=== PATIENT | male | born 1950 | race Caucasian/White ===

== ENCOUNTER 2016-07-23 16:42 | Emergency (ER) | payer OTHER ==
--- NOTE | 2016-07-23 17:40 | DIAGNOSTIC IMAGING REPORT ---
PROCEDURE: CT THORAX ABD PELVIS W/CONT INDICATION: TRAUMA, FALL FROM 8 - 10 FT TECHNIQUE: 125 ml of Isovue 300 injected intravenously and axial images were obtained of the entire thorax, abdomen, and pelvis with sagittal and coronal reformations. COMPARISON: Compared to radiographs of the thoracic and lumbar spine (01/24/2016) and CT abdomen and pelvis (09/16/2010). FINDINGS: THORAX: There is mild compressive volume loss at the lung bases. Lungs otherwise clear. Heart and mediastinum are of normal size. Moderate generalized ectasia of the thoracic esophagus. Mild to moderate degenerative changes of the thoracic spine. ABDOMEN: Cholecystectomy (surgical clips). Moderate ingested material in the stomach. Liver, spleen, pancreas, and aorta are normal. 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 Moderate diverticulosis of the descending colon. Bowel pattern is otherwise normal, including appendix. Moderate degenerative changes of the lumbar spine. PELVIS: Moderate diverticulosis of the sigmoid colon. Moderate to marked enlargement prostate (5.0 cm). The rest of pelvic structures are normal. No evidence of free fluid. IMPRESSION: 1. Moderate ectasia of the thoracic esophagus. Consider achalasia. 2. Moderate degenerative changes thoracic spine. 3. Otherwise negative CT thorax. 4. Status post cholecystectomy. 5. Moderate diverticulosis of the descending and sigmoid colon. 6. Moderate to marked enlargement prostate (5.0 cm). 7. Moderate degenerate change of the lumbar spine. 8. Otherwise negative CT abdomen and pelvis. 9. No evidence of acute process. 10. Finding discussed with Dr. Ronan Segal. All CT scans at this facility use dose modulation, iterative reconstruction, and/or weight-based dosing when appropriate to reduce radiation dose to as low as reasonably achievable.
--- NOTE | 2016-07-23 17:41 | DIAGNOSTIC IMAGING REPORT ---
PROCEDURE: CT HEAD WITHOUT CONTRAST INDICATION: TRAUMA/INJURY TECHNIQUE: Noncontrast axial images with sagittal and coronal reformations. COMPARISON: None. FINDINGS: Brain and ventricles are normal. No evidence of an acute process or hemorrhage. Sinuses and mastoids are normal. IMPRESSION: 1. Negative head CT. 2. Findings discussed with Dr. Ronan Segal at [address] scans at this facility use dose modulation, iterative reconstruction, and/or weight-based dosing when appropriate to reduce radiation dose to as low as reasonably achievable.
--- NOTE | 2016-07-23 18:52 | ED ORDER SUMMARY ---
..... Patient: JAMEL GUNN OrderSheet [facility] VisitID: [id number] [place] [address] 66y, M Registration Date/Time: 07/23/2016 ORDER SHEET Weight: 80.4 kg (measured) Allergies: None GENERAL ORDERS: CT Thorax/Abd/Pelvis w Cont (No) (N/A) Urgent (16:46 07/23/2016 Chucky Alexander) (Ack 16:55 Tonio) (17:31 Norbert R.N.) CT Head wo Cont Urgent (16:48 07/23/2016 Chucky Alexander) (Ack 16:55 Tonio) (17:31 Norbert R.N.) CBC w Diff Urgent (16:48 07/23/2016 Chucky Alexander) (16:54 Magnoarkvita R.N.) CMP Urgent (16:48 07/23/2016 Chucky Alexander) (16:54 Magnoarkvita R.N.) UA-Culture if indicated Urgent (16:48 07/23/2016 Chucky Alexander) (Ack 16:57 Tonio) (17:55 Wanda R.N.) PT with INR Urgent (16:48 07/23/2016 Chucky Alexander) (16:54 DMaziarka R.N.) PTT Urgent (16:48 07/23/2016 Chucky Alexander) (16:54 Magnoarkvita R.N.) Type & Screen Urgent (16:48 07/23/2016 Chucky Alexander) (16:54 DMaestebanarka R.N.) CPK Urgent (16:48 07/23/2016 Chucky Alexander) (16:54 Wanda R.N.) EKG - ER Stat (16:59 07/23/2016 Chucky Alexander) (Ack 16:59 Tonio) (17:31 Norbert R.N.) MEDICATION ORDERS: IV FLUIDS: Fentanyl IV 50 mcg (once now. may repeat Q1H for pain > 5/10) (16:48 07/23/2016 Chucky Alexander) (16:56 Wanda MarshallNJoan) IV NS : initial bolus 1000 mL (1000 mL/hr), then none - for X1 (NOW) (renal protection) (17:51 07/23/2016 Chucky Alexander) (17:57 Wanda Dawson.Jaja) ORDER SHEET NOTES: [Electronically signed by Carlton Johnson R.N. (20:00 07/23/2016)] [Electronically signed by Ronan Segal Dr. (11:03 07/26/2016)] [Electronically locked/signed by Carlton Johnson R.N. (20:00 07/23/2016)]
--- NOTE | 2016-07-23 18:52 | ED NURSING NOTES ---
Clinical Report - [facility] [place] [address] 07/23/2016 16:43 Patient: JAMEL GUNN TRIAGE Triage time 16:45. Acuity: LEVEL 2. Chief Complaint: FALL 8-10 FEET OFF A LADDER while climbing, onto a wood surface and concrete surface. Alert. --16:51 Nellie Tapia R.N. 16:49 07/23/16. BP: 149/87. HR: 98. RR: 24. O2 saturation: 97%. Temp: 98 F. Pain level now 9/10. --16:51 Nellie Tapia R.N. Weight: 80.4 kg measured. Height/Length: 69 inches Per Patient. BMI: 26.2. --16:50 Nellie Tapia R.N. Medications MetFORMIN HCl Oral. --16:46 Nellie Tapia R.N. Allergies None. --16:46 Nellie Tapia R.N. History Arrived by private vehicle. Historian: patient. Accompanied by family. This occurred just prior to arrival. The patient had loss of consciousness. (unknown). PAST MEDICAL HX: Diabetes mellitus. Tetanus status: unknown. SOCIAL HX: No alcohol use or drug use. --16:51 Nellie Tapia R.N. ADDITIONAL SURGERIES: Cholecystectomy. --16:47 Nellie Tapia R.N. PHYSICAL ASSESSMENT GENERAL / NEURO / PSYCH: Oriented X 4. Appears anxious and in distress. RESPIRATORY: Mild respiratory distress. CVS: Right breast area : tenderness. GI / : Abdomen soft. --16:51 Nellie Tapia R.N. RESPIRATORY: Breath sounds within normal limits. --16:53 Nellie Tapia R.N. NURSING PROGRESS NOTES Point of care testing: performed by tech. Glucose: 142. Patient gowned. Patient identifiers checked. Call light placed in reach. --16:52 Nellie Tapia R.N. 16:46 07/23/2016 Site #1 started via IV in the right antecubital space with an 20g angiocath; one attempt. Blood drawn: rainbow set. Labeled in the presence of the patient and sent to the lab. --16:56 Nellie Tapia R.N. 16:52 07/23/2016 Site #2 started via IV in the right forearm with an 18g angiocath; one attempt. Saline lock flushed with 10 mL saline. --16:57 Nellie Tapia R.N. 16:56 07/23/2016 Fentanyl IVP 50 mcg given over 2 minute(s) via site #1. Allergies verified, confirmed 5 rights and sedative warning given to the patient. IV patency established. IV site checked: no pain, redness, or swelling. IV flushed thoroughly pre- and post-medication administration. IVP given by RN. --16:56 Nellie Tapia R.N. Patient transported by stretcher with tech. (1700). --17:03 Nellie Tapia R.N. 17:37 07/23/16. BP: 128/77. HR: 91. RR: 13. O2 saturation: 96% on room air. Pain level now 5/10. --17:37 Shannan Hernandes R.N. 17:39 07/23/2016 Fentanyl IVP 50 mcg given over 2 minute(s) via site #2. Allergies verified, confirmed 5 rights and sedative warning given to the patient and patient's tactical response group officer. IV patency established. IV site checked: no pain, redness, or swelling. IV flushed thoroughly pre- and post-medication administration. IVP given by RN. --17:39 Shannan Hernandes R.N. 17:55 07/23/2016 Started bag #1 1000 mL IV Fluids IV NS (Saline); bolus of 1000 mL wide open via site #2. Allergies verified and confirmed 5 rights. IV patency established. IV site checked: no pain, redness, or swelling. IV flushed thoroughly pre- and post-medication administration. --17:57 Nellie Tapia R.N. The patient is calm and resting quietly. ( Remains tender and hard to breath on the right). GENERAL / NEURO / PSYCH: Alert. Oriented X 4. --17:57 Nellie Tapia R.N. 17:58 07/23/16. BP: 137/81. HR: 85. RR: 20. O2 saturation: 96%. Pain level now 6/10. --18:02 Nellie Tapia R.N. ( Family at bedside pt awaiting results). --18:02 Nellie Tapia R.N. EKG time: (16:57). EKG was performed by a tech and shown to the ED physician. --18:28 Mark Cortez Reassessment after intervention and medication administered. He reports no complaints, he is calm and resting quietly and he has had no adverse reaction. Overall patient status is improved- he states feels better. --18:29 Shannan Hernandes R.N. 18:28 07/23/16. BP: 138/78. HR: 90. RR: 11. O2 saturation: 98% on room air. Pain level now 10. --18:29 Shannan Hernandes R.N. Cardiac rhythm: normal sinus rhythm. --18:29 Shannan Hernandes R.N. 18:30 07/23/2016 IV Fluids IV NS Discontinued: bag #1 infused. Total amount infused: 1000 mL. IV patency established. IV site checked: no pain, redness, or swelling. IV flushed thoroughly. --18:30 Shannan Hernandes R.N. 19:10. ( RT (Misty) counseled pt on Incentive Spirometry. Misty reviewed importance of doing IS every hour for 10 breaths. Jamel demonstrated proper use of IS. He also verbalizes importance of using IS to prevent negative outcomes while healing from his thoracic contusion.). GENERAL / NEURO / PSYCH: Alert. Oriented X 4. RESPIRATORY: No respiratory distress. --19:57 Carlton Johnson R.N. DISPOSITION / DISCHARGE 19:30 07/23/16. BP: 144/77 (regular adult cuff) taken on the left arm, via an automated monitor, while sitting. HR: 79 (normal rate). RR: 18 (regular, unlabored and normal). O2 saturation: 96% on room air. Temp: 97.6 F (oral). Pain level now: 01/01. --19:59 Carlton Johnson R.N. 19:30. Departure time: 1929. Condition at departure: stable. The goals identified in the patient's plan of care were met. No learning barriers present. Discharge instructions provided and reviewed with the patient. Reviewed medication(s) side effects, precautions, dosing and course information. Prescription(s) given to the patient (Jamel verbalizes importance of not driving and/or operating heavy machinery while under the influence of narcotics. He verbalizes safe, proper use of prescribed pain med for optimal pain management at home.). Activity restrictions (rest) reviewed. Patient verbalized understanding. Written instructions provided in Slovak. ( Jamel verbalizes understanding of all d/c instructions including need to f/u with PCP. He has no questions and voices no concerns at this time.). The patient was discharged by the physician. He was discharged home and accompanied by family. He left the Emergency Department ambulatory and via private vehicle. Family member driving. YANDEL COMA SCORE: Yandel Coma Scale: 15- eyes open spontaneously (4); best verbal response- oriented x 4 (5); best motor response- obeys commands (6). --19:59 Carlton Johnson R.N. 20:00 07/23/2016 Site #1 removed upon discharge. Catheter intact. Bandaid applied (Bleeding controlled.). --20:00 Carlton Johnson R.N. 20:00 07/23/2016 Site #2 removed upon discharge. Catheter intact. Bandaid applied (Bleeding controlled.). --20:00 Carlton Johnson R.N. Locked/Released at 07/23/2016 20:00 by Carlton Johnson R.N.
--- NOTE | 2016-07-23 18:52 | ED ORDER SUMMARY ---
..... Patient: JAMEL GUNN OrderSheet [facility] VisitID: [id number] [place] [address] 66y, M Registration Date/Time: 07/23/2016 ORDER SHEET Weight: 80.4 kg (measured) Allergies: None GENERAL ORDERS: CT Thorax/Abd/Pelvis w Cont (No) (N/A) Urgent (16:46 07/23/2016 Chucky Alexander) (Ack 16:55 Tonio) (17:31 Norbert R.N.) CT Head wo Cont Urgent (16:48 07/23/2016 Chucky Alexander) (Ack 16:55 Tonio) (17:31 Norbert R.N.) CBC w Diff Urgent (16:48 07/23/2016 Chucky Alexander) (16:54 Magnoarkvita R.N.) CMP Urgent (16:48 07/23/2016 Chucky Alexander) (16:54 Magnoarkvita R.N.) UA-Culture if indicated Urgent (16:48 07/23/2016 Chucky Alexander) (Ack 16:57 Toino) (17:55 Wanda R.N.) PT with INR Urgent (16:48 07/23/2016 Chucky Alexander) (16:54 DMaziarka R.N.) PTT Urgent (16:48 07/23/2016 Chucky Alexander) (16:54 Magnoarkvita R.N.) Type & Screen Urgent (16:48 07/23/2016 Chucky Alexander) (16:54 DMaestebanarka R.N.) CPK Urgent (16:48 07/23/2016 Chucky Alexander) (16:54 Wanda R.N.) EKG - ER Stat (16:59 07/23/2016 Chucky Alexander) (Ack 16:59 Tonio) (17:31 Norbert R.N.) MEDICATION ORDERS: IV FLUIDS: Fentanyl IV 50 mcg (once now. may repeat Q1H for pain > 5/10) (16:48 07/23/2016 Chucky Alexander) (16:56 Wanda MarshallNJoan) IV NS : initial bolus 1000 mL (1000 mL/hr), then none - for X1 (NOW) (renal protection) (17:51 07/23/2016 Chucky Alexander) (17:57 Wanda Dawson.Jaja) ORDER SHEET NOTES: [Electronically signed by Carlton Johnson R.N. (20:00 07/23/2016)] [Electronically signed by Ronan Segal Dr. (11:03 07/26/2016)] [Electronically locked/signed by Carlton Johnson R.N. (20:00 07/23/2016)]
--- NOTE | 2016-07-23 18:52 | ED CLINICAL REPORT ---
Clinical Report - Physicians/Mid Levels [facility] [address] [place] [address] 07/23/2016 16:43 Patient: JAMEL GUNN Arrived- By private vehicle. Historian- patient. HISTORY OF PRESENT ILLNESS Chief Complaint: FALL. Location of injuries- (right chest wall and flank). The injury occurred just prior to arrival. Fell 8-10 feet. Occurred at home. The patient complains of moderate pain. No blow to the head, neck pain, loss of consciousness or seizure. Not dazed. (patient reports that he recalls the entire event. Patient states that he had fallen off a ladder. Patient reports no injury to the head, neck, back, abdomen, pelvis, or other extremities. Patient reports he was ambulatory after the accident however did so with great discomfort.). REVIEW OF SYSTEMS No numbness, loss of vision, difficulty breathing, weakness or nausea. No laceration or vomiting. All systems otherwise negative, except as recorded above. PAST HISTORY See nurses notes. Tetanus immunization status is up-to-date. Medications: MetFORMIN HCl Oral. Allergies: None. SOCIAL HISTORY Never smoker. No alcohol use or drug use. No recent travel. Is a local resident. ADDITIONAL NOTES The nursing notes have not been reviewed. PHYSICAL EXAM Vital Signs: 07/23/2016 16:49 BP: 149/87. HR: 98. RR: 24. O2 saturation: 97%. Temp: 98 F. Blood pressure normal. Oxygen saturation normal. Appearance: Alert. Oriented X3. No acute distress. Head: Head non-tender. No swelling of head. No Melvin's sign or raccoon eyes. Eyes: Pupils equal, round and reactive to light. Pupillary exam: Right pupil round and reactive to light directly and consensually and with accommodation. Left pupil: round and reactive to light directly and consensually and with accommodation. EOM intact. ENT: No dental injury. No hemotympanum. Pharynx normal. Neck: No decreased ROM or muscle spasm in the neck. No pain with movement of head/neck. Painless ROM. Non-tender. No vertebral tenderness. CVS: Heart sounds normal. Pulses normal. Respiratory: Breath sounds normal. Chest nontender. (Mild tenderness to the right lateral chest wall. No crepitus. Overlying skin changes. Skin is intact. No bony abnormalities.). Abdomen: No visible injury. Soft and nontender. Bowel sounds normal. No organomegaly. No mass. Femoral pulses equal. (No bruising or ecchymosis.). Back: No tenderness. ROM normal. No tenderness, vertebral point tenderness, muscle spasm or limitation in ROM. Skin: Skin intact. Skin warm and dry. Normal skin color. Normal skin turgor. Extremities: Normal inspection. Pelvis stable. Extremities atraumatic. No lower extremity edema. Neuro: Yandel Coma Scale: 15- eyes open spontaneously (4); best verbal response- oriented x 3 (5); best motor response- obeys commands (6). Oriented X 3. No motor deficit. No sensory deficit. LABS, X-RAYS, AND EKG EKG: No acute process. No acute ischemia. Normal EKG. Normal sinus rhythm. Rate: 95. Normal P waves. Normal COLE. Normal QRS complex. Normal axis. Normal ST and T waves, QT and QTc. No ST elevation or depression. The study has been interpreted contemporaneously by me. The study has been independently viewed by me. The EKG appears to be a good tracing. CT Head: (PROCEDURE: CT HEAD WITHOUT CONTRAST INDICATION: TRAUMA/INJURY TECHNIQUE: Noncontrast axial images with sagittal and coronal reformations. COMPARISON: None. FINDINGS: Brain and ventricles are normal. No evidence of an acute process or hemorrhage. Sinuses and mastoids are normal. IMPRESSION: 1. Negative head CT. 2. Findings discussed with Dr. Ronan Segal at [address] scans at this facility use dose modulation, iterative reconstruction, and/or weight-based dosing when appropriate to reduce radiation dose to as low as reasonably achievable.). Head CT performed without contrast. The study was independently viewed by me and interpreted by the radiologist. The study was discussed with the radiologist (via phone and pacs). Chest CT: (PROCEDURE: CT THORAX ABD PELVIS W/CONT INDICATION: TRAUMA, FALL FROM 8 - 10 FT TECHNIQUE: 125 ml of Isovue 300 injected intravenously and axial images were obtained of the entire thorax, abdomen, and pelvis with sagittal and coronal reformations. COMPARISON: Compared to radiographs of the thoracic and lumbar spine (01/24/2016) and CT abdomen and pelvis (09/16/2010). FINDINGS: THORAX: There is mild compressive volume loss at the lung bases. Lungs otherwise clear. Heart and mediastinum are of normal size. Moderate generalized ectasia of the thoracic esophagus. Mild to moderate degenerative changes of the thoracic spine. ABDOMEN: Cholecystectomy (surgical clips). Moderate ingested material in the stomach. Liver, spleen, pancreas, and aorta are normal. 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 Moderate diverticulosis of the descending colon. Bowel pattern is otherwise normal, including appendix. Moderate degenerative changes of the lumbar spine. PELVIS: Moderate diverticulosis of the sigmoid colon. Moderate to marked enlargement prostate (5.0 cm). The rest of pelvic structures are normal. No evidence of free fluid. IMPRESSION: 1. Moderate ectasia of the thoracic esophagus. Consider achalasia. 2. Moderate degenerative changes thoracic spine. 3. Otherwise negative CT thorax. 4. Status post cholecystectomy. 5. Moderate diverticulosis of the descending and sigmoid colon. 6. Moderate to marked enlargement prostate (5.0 cm). 7. Moderate degenerate change of the lumbar spine. 8. Otherwise negative CT abdomen and pelvis. 9. No evidence of acute process.). Chest CT performed without contrast. The study was independently viewed by me and interpreted by the radiologist. The study was discussed with the radiologist (via pacs and phone). Note - Special Studies: PROCEDURE: CT THORAX ABD PELVIS W/CONT INDICATION: TRAUMA, FALL FROM 8 - 10 FT TECHNIQUE: 125 ml of Isovue 300 injected intravenously and axial images were obtained of the entire thorax, abdomen, and pelvis with sagittal and coronal reformations. COMPARISON: Compared to radiographs of the thoracic and lumbar spine (01/24/2016) and CT abdomen and pelvis (09/16/2010). FINDINGS: THORAX: There is mild compressive volume loss at the lung bases. Lungs otherwise clear. Heart and mediastinum are of normal size. Moderate generalized ectasia of the thoracic esophagus. Mild to moderate degenerative changes of the thoracic spine. ABDOMEN: Cholecystectomy (surgical clips). Moderate ingested material in the stomach. Liver, spleen, pancreas, and aorta are normal. 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 Moderate diverticulosis of the descending colon. Bowel pattern is otherwise normal, including appendix. Moderate degenerative changes of the lumbar spine. PELVIS: Moderate diverticulosis of the sigmoid colon. Moderate to marked enlargement prostate (5.0 cm). The rest of pelvic structures are normal. No evidence of free fluid. IMPRESSION: 1. Moderate ectasia of the thoracic esophagus. Consider achalasia. 2. Moderate degenerative changes thoracic spine. 3. Otherwise negative CT thorax. 4. Status post cholecystectomy. 5. Moderate diverticulosis of the descending and sigmoid colon. 6. Moderate to marked enlargement prostate (5.0 cm). 7. Moderate degenerate change of the lumbar spine. 8. Otherwise negative CT abdomen and pelvis. 9. No evidence of acute process. Laboratory Tests: UA-Culture if indicated: (EDSON: 07/23/2016 17:39) ( [facility] [place] 07/23/2016 18:03) Final results Test Result Flag Units (Reference) URINE COLOR YELLOW URINE APPEARANCE CLEAR URINE GLUCOSE NEGATIVE (NEGATIVE) URINE BILIRUBIN NEGATIVE (NEGATIVE) URINE KETONE NEGATIVE (NEGATIVE) URINE SPECIFIC GRAVITY 1.010 (1.010-1.030) URINE PH 5.5 (5.0-8.0) URINE PROTEIN NEGATIVE (NEGATIVE) URINE UROBILINOGEN 0.2 EU/dL (0.2-1.0) URINE NITRITE NEGATIVE (NEGATIVE) URINE BLOOD TRACE-LYSED (NEGATIVE) URINE LEUK ESTERASE NEGATIVE (NEGATIVE) URINE RBC NONE SEEN rbc/hpf (0-1) URINE WBC RARE wbc/hpf (0-1) URINE EPITHELIAL CELLS RARE EPI/hpf (0-5) URINE BACTERIA NONE SEEN (NONE SEEN) URINE COMMENT CULT NOT INDICATED URINE CULTURES ARE SET-UP BASED ON THE FOLLOWING CRITERIA:POSITIVE NITRITEPOSITIVE LEUKOCYTE ESTERASEGREATER THAN 10 WHITE BLOOD CELLSMODERATE (2+) OR GREATER BACTERIA CBC w Diff: (EDSON: 07/23/2016 16:48) ( [facility] [place] 07/23/2016 17:02) Final results Test Result Flag Units (Reference) WHITE BLOOD COUNT 9.2 K/uL (4.5-11.5) RED BLOOD COUNT 5.49 M/uL (4.50-5.90) HEMOGLOBIN 16.4 gm/dL (13.5-17.5) HEMATOCRIT 49.2 % (41.0-53.0) MEAN CELL VOLUME 90 fL (80-100) MEAN CORPUSCULAR HGB 30 pg (26-34) MEAN CORPUSCULAR HGB CONC 33 g/dL (31-37) RED CELL DISTRIBUTION WIDTH 13.8 % (11.6-14.8) PLATELET COUNT 324 K/uL (150-400) NEUTROPHIL % 73.8 % (50-75) LYMPH % 13.0 L % (25-40) MONO % 11.0 % (3-14) EOSINOPHIL % 1.8 % (0-4) BASOPHIL % 0.4 % (0-2) PT with INR: (EDSON: 07/23/2016 16:48) ( [facility] [place] 07/23/2016 17:09) Final results Test Result Flag Units (Reference) INR 1.0 (0.8-1.2) Low Intensity Therapy: INR 1.5-2.0 PT range 18.5-23.1Mod.Intensity Therapy: INR 2.0-3.0 PT range 23.1-31.5High Intensity Therapy: INR 2.5-3.5 PT range 27.4-35.5High Intensity Therapy 2: INR 3.0-4.0 PT range 31.5-39.3 APTT 27 SECONDS (24-34) CMP: (EDSON: 07/23/2016 16:48) ( [facility] [place] 07/23/2016 17:47) Final results Test Result Flag Units (Reference) GLUCOSE 129 H mg/dL (70-110) BUN 19 H mg/dL (7-18) CREATININE 1.3 mg/dL (0.6-1.3) Estimated GFR 59.07 mL/min Estimated GFR- >60 mL/min Note: Persistent reduction over 3 months in eGFR<60 mL/min/1.73 m2 defines CKD. Patients with eGFR values>=60 mL/min/1.73 m2 may also have CKD if evidence ofpersistent proteinuria. Additional information may be foundat www.[email or web address].org. SODIUM 140 mmol/L (136-145) POTASSIUM 4.2 mmol/L (3.5-5.1) CHLORIDE 104 mmol/L (98-107) CARBON DIOXIDE 25 mmol/L (21-32) CALCIUM 8.6 mg/dL (8.5-10.1) TOTAL PROTEIN 7.6 g/dL (6.4-8.2) ALBUMIN 4.0 g/dL (3.3-5.0) BILIRUBIN, TOTAL 0.5 mg/dL (0.0-1.0) ALKALINE PHOSPHATASE 78 U/L (46-116) AST (SGOT) 34 U/L (15-37) ALT (SGPT) 46 U/L (12-78) CPK 268 H U/L (24-260) CK-MB 3.2 ng/mL (0.5-3.2) %CKMB 1.2 % (0.0-4.0) Type & Screen: (EDSON: 07/23/2016 16:48) ( MsgRcvd 07/23/2016 17:57) Final results Test Result Flag Units (Reference) PATIENT BLOOD TYPE O Positive ANTIBODY SCREEN NEGATIVE . PROGRESS AND PROCEDURES Course of Care: he patient is a pleasant 66-year-old male presenting for evaluation of fall from ladder. The patient fell from approximately 8-10 feet. Patient had triggered the modified trauma protocol. The patient was brought to room 2 and stabilized. Vital signs are otherwise unremarkable. Trauma surgery did not show any acute abnormalities with airway breathing or circulation. Patient was hemodynamicallynormal. Workup for potential injuries have been ordered as well as pain medication. Patient is agreeable to the treatment plan. No neurovascular Demise noted on examination. Because the patient is almost 67 years old and did on second review report head injury CT scan was ordered. The patient states that he did hit his head but it didn't hurt. No signs of trauma on examination of the head. Workup does not show any acute abdomen maladies. EKG was also ordered secondary to blunt chest trauma. The patient's workup does not show any acute abnormalities as far as for intrathoracic or intra-abdominalpathology. Patient continues to be neurovascularly intact. Several doses of pain medication provided here in the emergency department. No signs of respiratory distress. Because the patient's workup is unremarkable and patient has good follow-up, feel the patient is a good outpatient candidate. Do not Feel the patient needs to be monitored further in the emergency department. Discussed with family and with patient workup, diagnosis, home care, follow-up, and return precautions. All questions answered. The patient expressed understanding of these instructions and was agreeable to them. CLINICAL IMPRESSION 07/23/2016 16:49 BP: 149/87. HR: 98. RR: 24. O2 saturation: 97%. Temp: 98 F. Hypertensive. Oxygen saturation normal. Fall from ladder (acute). Multiple contusions to the head and right chest and right upper quadrant of the abdomen and right lower quadrant of the abdomen. (acute). No skin abrasion. INSTRUCTIONS Warnings: GENERAL WARNINGS: Return or contact your physician immediately if your condition worsens or changes unexpectedly, if not improving as expected, or if other problems arise. SPECIFICALLY, return if you develop weakness, numbness, tingling, pain or incontinence. shortness of breath, worsening pain, light headed, change in behavior, or worsening symptoms. Your Current Medications: CONTINUE TAKING THE FOLLOWING MEDICATIONS: MetFORMIN HCl Oral. Prescription Medications: Percocet 5 mg/325 mg: take 1 tablet orally every 6 hours as needed for pain. Dispense twenty (20). No refill. Substitution is permissible. Follow-up: Return to the emergency department as needed. Follow up with your doctor in three days. Reason for referral: recheck today's concerns. Summary of care provided to patient via paper. Screening today revealed the patient's blood pressure to be in the hypertensive range. Blood pressure screening was not performed during this visit because the patient has an active diagnosis of hypertension. The patient should follow up with a primary care provider for blood pressure management. Understanding of the discharge instructions verbalized by patient. (Electronically signed by Ronan Segal Dr. 07/26/2016 11:03)
--- NOTE | 2016-07-26 11:04 | ED MED RECONCILIATION SUMMARY ---
Patient: JAMEL GUNN Medication Reconciliation Report [facility] VisitID: [id number] [address] [place] [address] 66y, M Registration Date/Time: 07/23/2016 Weight: 80.4 kg Height/Length: 69 in. BMI: 26.2 ALLERGIES: None The patient's Home Medications are listed below: CONTINUE TAKING THE FOLLOWING MEDICATIONS: MetFORMIN HCl Oral The source(s) of the original Home Medication information: Not obtained. The following Medications were given to the patient in the Emergency Department: Fentanyl [IVP] IVP 50 mcg, administered: 07/23/2016 4:56:00 PM Fentanyl [IVP] IVP 50 mcg, administered: 07/23/2016 5:39:00 PM IV NS IV Fluids bolus 1000 mL wide open, administered: 07/23/2016 5:55:00 PM The following Medications were prescribed to the patient: Percocet 5 mg/325 mg: take 1 tablet orally every 6 hours as needed for pain. Dispense twenty (20). No refill. Substitution is permissible. -- Ronan Segal Dr.
--- NOTE | 2016-07-26 11:04 | ED DISCHARGE INSTRUCTIONS ---
Patient: JAMEL GUNN General Instructions [facility] VisitID: [id number] [place] [address] 66y, M Registration Date/Time: 07/23/2016 07/23/2016 16:49 BP: 149/87. HR: 98. RR: 24. O2 saturation: 97%. Temp: 98 F. Hypertensive. Oxygen saturation normal. Fall from ladder (acute). Multiple contusions to the head and right chest and right upper quadrant of the abdomen and right lower quadrant of the abdomen. (acute). No skin abrasion. INSTRUCTIONS Warnings: GENERAL WARNINGS: Return or contact your physician immediately if your condition worsens or changes unexpectedly, if not improving as expected, or if other problems arise. SPECIFICALLY, return if you develop weakness, numbness, tingling, pain or incontinence. shortness of breath, worsening pain, light headed, change in behavior, or worsening symptoms. Your Current Medications: CONTINUE TAKING THE FOLLOWING MEDICATIONS: MetFORMIN HCl Oral. Prescription Medications: Percocet 5 mg/325 mg: take 1 tablet orally every 6 hours as needed for pain. Dispense twenty (20). No refill. Substitution is permissible. Follow-up: Return to the emergency department as needed. Follow up with your doctor in three days. Reason for referral: recheck today's concerns. Summary of care provided to patient via paper. Screening today revealed the patient's blood pressure to be in the hypertensive range. Blood pressure screening was not performed during this visit because the patient has an active diagnosis of hypertension. The patient should follow up with a primary care provider for blood pressure management. Understanding of the discharge instructions verbalized by patient. ADDITIONAL INFORMATION Mechanical Fall You have had a fall today. It appears that the cause is mechanical. That means that you slipped, tripped or lost your balance. If your fall had been due to fainting or a seizure, further tests would be required. Home Care: Rest today and resume your normal activities when you are feeling back to normal. If you were injured during the fall, follow the advice from your doctor regarding care of your injury. You may use acetaminophen (Tylenol) or ibuprofen (Motrin, Advil) to control pain, unless another pain medicine was prescribed. [NOTE: If you have chronic liver or kidney disease or ever had a stomach ulcer or GI bleeding, talk with your doctor before using these medicines.] Fall Prevention: Was there anything that caused your fall that can be fixed, removed, or replaced? Make your home safe by keeping walkways clear of objects you may trip over. Use non-slip pads under rugs. Do not walk in poorly lit areas. Do not stand on chairs or wobbly ladders. Use caution when reaching overhead or looking upward. This position can cause a loss of balance. Be sure your shoes fit properly, have non-slip bottoms and are in good condition. Be cautious when going up and down curbs, and walking on uneven sidewalks. If your balance is poor, consider using a cane or walker. Stay as active as you can. Balance, flexibility, strength, and endurance all come from exercise. They all play a role in preventing falls. Follow Up with your doctor or as advised by our staff. Get Prompt Medical Attention if any of the following occur: Repeated mechanical falls, or unexplained falls Dizziness, fainting or seizure Severe headache Chest pain or shortness of breath Palpitations (very rapid or very slow or irregular heartbeat) Blood in vomit, stools (black or red color) Weakness of an arm or leg or one side of the face Difficulty with speech or vision Contusion,Soft Tissue You have a CONTUSION, which is a bruise with swelling and some bleeding under the skin. There are no broken bones. This injury takes a few days to a few weeks to heal. Home Care: 1) Keep the injured part elevated to reduce pain and swelling. This is especially important during the first 48 hours. 2) Make an ice pack (ice cubes in a plastic bag, wrapped in a towel) and apply for 20 minutes every 1-2 hours the first day. Continue this 3-4 times a day until the pain and swelling goes away. 3) You may use acetaminophen (Tylenol) or ibuprofen (Motrin, Advil) to control pain, unless another pain medicine was prescribed. [ NOTE : If you have chronic liver or kidney disease or ever had a stomach ulcer or GI bleeding, talk with your doctor before using these medicines.] Follow Up with your doctor or this facility if you are not improving within the next THREE days. [NOTE: If X-rays were taken, they will be reviewed by a radiologist. You will be notified of any new findings that may affect your care.] Get Prompt Medical Attention if any of the following occur: -- Pain or swelling increases -- Injured arm or leg becomes cold, blue, numb or tingly -- Redness, warmth or drainage from the skin Chest Contusion Acontusion is a bruise to the skin, muscle or ribs. It may cause pain, tenderness, swelling and a purplish discoloration. Contusions take a few days to a few weeks to heal. Home Care: Rest. You should not be doing any heavy lifting or strenuous exertion, or any activity that causes pain. You may use acetaminophen (Tylenol) or ibuprofen (Motrin, Advil) to control pain, unless another pain medicine was prescribed. [ NOTE: If you have chronic liver or kidney disease or ever had a stomach ulcer or GI bleeding, talk with your doctor before using these medicines.] Follow Up with your doctor during the next week or as directed. Get Prompt Medical Attention if any of the following occur: Shortness of breath Increasing chest pain with breathing Dizziness, weakness or fainting New or worsening of abdominal pain Fever of 100.4F (38C) or higher, or as directed by your healthcare provider Oxycodone Hydrochloride, Acetaminophen Oral tablet What is this medicine? ACETAMINOPHEN; OXYCODONE (a set a LUDWIG kannan fen; ox i KOE done) is a pain reliever. It is used to treat mild to moderate pain. How should I use this medicine? Take this medicine by mouth with a full glass of water. Follow the directions on the prescription label. Take your medicine at regular intervals. Do not take your medicine more often than directed. Talk to your generator man regarding the use of this medicine in children. Special care may be needed. Patients over 65 years old may have a stronger reaction and need a smaller dose. What side effects may I notice from receiving this medicine? Side effects that you should report to your doctor or health primary care nurse practitioner as soon as possible: allergic reactions like skin rash, itching or hives, swelling of the face, lips, or tongue breathing difficulties, wheezing confusion light headedness or fainting spells severe stomach pain yellowing of the skin or the whites of the eyes Side effects that usually do not require medical attention (report to your doctor or health primary care nurse practitioner if they continue or are bothersome): dizziness drowsiness nausea vomiting What may interact with this medicine? alcohol antihistamines barbiturates like amobarbital, butalbital, butabarbital, methohexital, pentobarbital, phenobarbital, thiopental, and secobarbital benztropine drugs for bladder problems like solifenacin, trospium, oxybutynin, tolterodine, hyoscyamine, and methscopolamine drugs for breathing problems like ipratropium and tiotropium drugs for certain stomach or intestine problems like propantheline, homatropine methylbromide, glycopyrrolate, atropine, belladonna, and dicyclomine general anesthetics like etomidate, ketamine, nitrous oxide, propofol, desflurane, enflurane, halothane, isoflurane, and sevoflurane medicines for depression, anxiety, or psychotic disturbances medicines for sleep muscle relaxants naltrexone narcotic medicines (opiates) for pain phenothiazines like perphenazine, thioridazine, chlorpromazine, mesoridazine, fluphenazine, prochlorperazine, promazine, and trifluoperazine scopolamine tramadol trihexyphenidyl What if I miss a dose? If you miss a dose, take it as soon as you can. If it is almost time for your next dose, take only that dose. Do not take double or extra doses. Where should I keep my medicine? Keep out of the reach of children. This medicine can be abused. Keep your medicine in a safe place to protect it from theft. Do not share this medicine with anyone. Selling or giving away this medicine is dangerous and against the law. Store at room temperature between 20 and 25 degrees C (68 and 77 degrees F). Keep container tightly closed. Protect from light. This medicine may cause accidental overdose and if it is taken by other adults, children, or pets. Flush any unused medicine down the toilet to reduce the chance of harm. Do not use the medicine after the expiration date. What should I tell my health care provider before I take this medicine? They need to know if you have any of these conditions: brain tumor Crohn's disease, inflammatory bowel disease, or ulcerative colitis drink more than 3 alcohol containing drinks per day drug abuse or addiction head injury heart or circulation problems kidney disease or problems going to the bathroom liver disease lung disease, asthma, or breathing problems an unusual or allergic reaction to acetaminophen, oxycodone, other opioid analgesics, other medicines, foods, dyes, or preservatives or trying to get breast-feeding What should I watch for while using this medicine? Tell your doctor or health primary care nurse practitioner if your pain does not go away, if it gets worse, or if you have new or a different type of pain. You may develop tolerance to the medicine. Tolerance means that you will need a higher dose of the medication for pain relief. Tolerance is normal and is expected if you take this medicine for a long time. Do not suddenly stop taking your medicine because you may develop a severe reaction. Your body becomes used to the medicine. This does NOT mean you are addicted. Addiction is a behavior related to getting and using a drug for a non-medical reason. If you have pain, you have a medical reason to take pain medicine. Your doctor will tell you how much medicine to take. If your doctor wants you to stop the medicine, the dose will be slowly lowered over time to avoid any side effects. You may get drowsy or dizzy. Do not drive, use machinery, or do anything that needs mental alertness until you know how this medicine affects you. Do not stand or sit up quickly, especially if you are an older patient. This reduces the risk of dizzy or fainting spells. Alcohol may interfere with the effect of this medicine. Avoid alcoholic drinks. There are different types of narcotic medicines (opiates) for pain. If you take more than one type at the same time, you may have more side effects. Give your health care provider a list of all medicines you use. Your doctor will tell you how much medicine to take. Do not take more medicine than directed. Call emergency for help if you have problems breathing. The medicine will cause constipation. Try to have a bowel movement at least every 2 to 3 days. If you do not have a bowel movement for 3 days, call your doctor or health primary care nurse practitioner. Do not take Tylenol (acetaminophen) or medicines that have acetaminophen with this medicine. Too much acetaminophen can be very dangerous. Many nonprescription medicines contain acetaminophen. Always read the labels carefully to avoid taking more acetaminophen. You have been given the following additional information: Fall, Mechanical Contusion, Soft Tissue Chest Wall Contusion Oxycodone Hydrochloride, Acetaminophen Oral tablet (Electronically signed by Ronan Segal Dr. 07/26/2016 11:03)
--- NOTE | 2016-07-26 11:04 | ED MAR SUMMARY ---
..... Medication Administration Record [facility] [address] [place] [address] Patient: JAMEL GUNN Visit ID: [id number] 66y, M Weight: 80.4 kg Height/Length: 69 in BMI: 26.2 ALLERGIES: None Given 16:56 07/23/2016 Nellie Tapia R.N. Medication Administered: FENTANYL [IVP], Dose: 50 mcg IVP over 2 minute(s), Site: #1 right AC. Medication Ordered: Fentanyl IV 50 mcg (once now. may repeat Q1H for pain > 5/10). Given 17:39 07/23/2016 Shannan Hernandes R.N. Medication Administered: FENTANYL [IVP], Dose: 50 mcg IVP over 2 minute(s), Site: #2 right forearm. Medication Ordered: Fentanyl IV 50 mcg (once now. may repeat Q1H for pain > 5/10). Start 17:55 07/23/2016 Nellie Tapia R.N., Stop 18:30 07/23/2016 Shannan Hernandes R.N. Medication Administered: IV NS (SALINE), Dose: IV Fluids, Bolus: 1000 mL wide open, Dispensed: 1000 mL bag, Site: #2 right forearm. Medication Ordered: IV NS : initial bolus 1000 mL (1000 mL/hr), then none - for X1 (NOW) (renal protection).
--- NOTE | 2016-07-26 11:04 | ED MAR SUMMARY ---
..... Medication Administration Record [facility] [address] [place] [address] Patient: JAMEL GUNN Visit ID: [id number] 66y, M Weight: 80.4 kg Height/Length: 69 in BMI: 26.2 ALLERGIES: None Given 16:56 07/23/2016 Nellie Tapia R.N. Medication Administered: FENTANYL [IVP], Dose: 50 mcg IVP over 2 minute(s), Site: #1 right AC. Medication Ordered: Fentanyl IV 50 mcg (once now. may repeat Q1H for pain > 5/10). Given 17:39 07/23/2016 Shannan Hernandes R.N. Medication Administered: FENTANYL [IVP], Dose: 50 mcg IVP over 2 minute(s), Site: #2 right forearm. Medication Ordered: Fentanyl IV 50 mcg (once now. may repeat Q1H for pain > 5/10). Start 17:55 07/23/2016 Nellie Tapia R.N., Stop 18:30 07/23/2016 Shannan Hernandes R.N. Medication Administered: IV NS (SALINE), Dose: IV Fluids, Bolus: 1000 mL wide open, Dispensed: 1000 mL bag, Site: #2 right forearm. Medication Ordered: IV NS : initial bolus 1000 mL (1000 mL/hr), then none - for X1 (NOW) (renal protection).
--- NOTE | 2016-07-26 11:04 | ED MED RECONCILIATION SUMMARY ---
Patient: JAMEL GUNN Medication Reconciliation Report [facility] VisitID: [id number] [address] [place] [address] 66y, M Registration Date/Time: 07/23/2016 Weight: 80.4 kg Height/Length: 69 in. BMI: 26.2 ALLERGIES: None The patient's Home Medications are listed below: CONTINUE TAKING THE FOLLOWING MEDICATIONS: MetFORMIN HCl Oral The source(s) of the original Home Medication information: Not obtained. The following Medications were given to the patient in the Emergency Department: Fentanyl [IVP] IVP 50 mcg, administered: 07/23/2016 4:56:00 PM Fentanyl [IVP] IVP 50 mcg, administered: 07/23/2016 5:39:00 PM IV NS IV Fluids bolus 1000 mL wide open, administered: 07/23/2016 5:55:00 PM The following Medications were prescribed to the patient: Percocet 5 mg/325 mg: take 1 tablet orally every 6 hours as needed for pain. Dispense twenty (20). No refill. Substitution is permissible. -- Ronan Segal Dr.
== END 2016-07-23 19:30 | disposition home or self-care (01) ==
LOC: ED SRH 16:42
DX: S20.211A Contusion of right front wall of thorax, initial encounter (principal); S30.1XXA Contusion of abdominal wall, initial encounter; S00.93XA Contusion of unspecified part of head, initial encounter; W11.XXXA Fall on and from ladder, initial encounter; Y93.9 Activity, unspecified; Y92.009 Unspecified place in unspecified non-institutional (private) residence as the place of occurrence of the external cause; Y99.9 Unspecified external cause status; E11.9 Type 2 diabetes mellitus without complications; Z79.84 Long term (current) use of oral hypoglycemic drugs
CPT/HCPCS: 90001; 90004; 90100; 90155; 90617; 91004; 92610; 94001; 94060; 95059